=== PATIENT | female | born 1970 | race Two or more races ===

== ENCOUNTER 2020-06-29 01:50 | Emergency (ER) | payer MEDICAID ==
[~2020-06-29] VITALS: Ht 160 cm; Wt 122.0 kg
[2020-06-29] MEDS ORDERED: SODIUM CHLORIDE FLUSH 10ML SYR IVF ONE (02:00)
[2020-06-29] MEDS ORDERED: SODIUM CHLORIDE 0.9% 1,000ML IVBOLUS ONE (02:00)
[2020-06-29 02:18] LABS: BASOPHILS % (AUTO) 1 % (0-1); EOSINOPHILS % (AUTO) 3 % (1-7); LYMPHOCYTES % (AUTO) 32 % (22-44); MEAN CORPUSCULAR HEMOGLOBIN 30.6 pg (27.0-34.8); MEAN CORPUSCULAR HGB CONC 33.6 g/dL (32.4-35.8); MEAN PLATELET VOLUME 10.9 fL (7.4-10.4); MONOCYTES % (AUTO) 8 % (2-9); NEUTROPHILS % (AUTO) 56 % (42-75); PLATELET COUNT 234 x10^3/uL (130-400); RED BLOOD COUNT 4.56 x10^6/uL (3.82-5.3)
[2020-06-29 02:19] LABS: MD NO
--- NOTE | 2020-06-29 02:19 | NUR ---
BIBA FOR DIZZYNESS AND NAUSEA. PT STATES SHE SMOKED WEED TODAY AND METH 2 DAYS AGO. PT IS DIAPHORETIC AND SLURRING WORDS BUT IS UNDERSTANDABLE. EMS GOT BLOOD SUGAR OF 180 AND PLACED PIV 18 GAUGE TO LEFT AC. PT ANSWERS ORIENTATION QUESTIONS APPROPIATELY. PT STATES SHE HAS SMOKED WEED BEFORE AND HAS NEVER HAD A REACTION LIKE THIS.
--- NOTE | 2020-06-29 02:32 | NUR ---
SISTER AT BEDSIDE
--- NOTE | 2020-06-29 02:53 | NUR ---
Delaney Cruz sister [phone]
[2020-06-29 02:59] LABS: ALANINE AMINOTRANSFERASE 31 U/L (12-78); ALBUMIN 3.5 g/dL (3.4-5.0); ANION GAP 6 mmol/L (5-15); CALCIUM 8.4 mg/dL (8.5-10.1); CHLORIDE 108 mmol/L (98-107); CREATININE 1.23 mg/dL (0.55-1.02)
--- NOTE | 2020-06-29 03:02 | NUR ---
REPORT GIVEN TO VAMSI EMMANUEL
[2020-06-29 03:03] LABS: ALKALINE PHOSPHATASE 76 U/L (45-117); BILIRUBIN,TOTAL 0.3 mg/dL (0.2-1.0); TOTAL PROTEIN 7.6 g/dL (6.4-8.2); TROPONIN I < 0.015 ng/mL (0.000-0.045)
--- NOTE | 2020-06-29 03:04 | NUR ---
REPORT FROM JOHN EMMANUEL
--- NOTE | 2020-06-29 03:05 | NUR ---
PT SITTING UPRIGHT ON GURNEY, RESTING COMFORTABLY WITH EYES CLOSED. PHILIP, YANDY. PT UNABLE TO PROVIDE URINE SAMPLE AT THIS TIME. PT DENIES ANY NEEDS. CALL LIGHT AND BELONGINGS WITHIN REACH.
--- NOTE | 2020-06-29 04:00 | NUR ---
URINE SAMPLE PROVIDED. SAMPLE WALKED TO LAB. PT DENIES ANY ADDITIONAL NEEDS. ERP AT BEDSIDE FOR RE-EVAL. WILL OCNTINUE TO MONITOR.
--- NOTE | 2020-06-29 04:22 | NUR ---
PT RETURNED FROM CT
[2020-06-29 04:24] LABS: AMPHETAMINE SCREEN, URINE Positive (Negative); BARBITURATE SCREEN, URINE Negative (Negative); BENZODIAZEPINE SCREEN, URINE Negative (Negative); CANNABINOID SCREEN, URINE Positive (Negative); COCAINE SCREEN, URINE Negative (Negative); METHADONE SCREEN, URINE Negative (Negative); OPIATE SCREEN, URINE Negative (Negative)
--- NOTE | 2020-06-29 04:34 | NUR ---
PURE WICK PLACED PER PT REQUEST. PT DENIES ANY ADDITIONAL NEEDS AT THIS TIME. CALL LIGHT AND BELONGINGS WITHIN REACH.
[2020-06-29 06:01] VITALS: BP 148/101
--- NOTE | 2020-06-29 06:46 | NUR ---
Patient given discharge instructions and they have confirmed that they understand the instructions. Patient ambulatory with steady gait. Pt to family vehicle via wheelchair.
== END 2020-06-29 06:48 | disposition home or self-care (01) ==
LOC: ED 06:35
DX: F15.10 Other stimulant abuse, uncomplicated (principal); F12.10 Cannabis abuse, uncomplicated; R41.82 Altered mental status, unspecified; E11.9 Type 2 diabetes mellitus without complications; R07.89 Other chest pain; I10 Essential (primary) hypertension; Z72.9 Problem related to lifestyle, unspecified
CPT/HCPCS: 36415; 70450; 71045; 80053; 80307; 80320; 82962; 84484; 85025; 93005; 96360; 96361; 99285; J7030; G0480